=== PATIENT | male | born 1990 | race Caucasian/White ===

== ENCOUNTER 2023-08-11 20:24 | Emergency (ER) | payer OTHER ==
[~2023-08-11] VITALS: Ht 182.9 cm; Wt 90.7 kg
[~2023-08-11 20:24] MED LIST: PAXIL40 MG PO
[2023-08-11] MEDS ORDERED: VENTOLIN HFA18 GM INH (20:35)
[2023-08-11] MEDS ORDERED: OMEPRAZOLE20 MG PO (20:35)
[2023-08-11] MEDS ORDERED: FLUOXETINE HCL20 MG PO (20:35)
[2023-08-11 20:41] LABS: BASOPHILS 0.7 % (0-2); EOSINOPHILS 0.7 % (0-6); HEMATOCRIT 45.6 % (35.0-50.0); HEMOGLOBIN 15.7 g/dL (12.0-18.0); LYMPHOCYTES 24.1 % (24-44); MCHC 34.5 g/dl (30-36); MCV 81.1 fl (81-99); MONOCYTES 7.8 % (0-12); NEUTROPHILS 66.7 % (39-80); PLATELET COUNT 337 K/uL (140-440); RBC 5.62 M/ul (4.3-5.7); RDW 13.3 (10.5-15.0)
[2023-08-11 20:54] LABS: ALBUMIN 4.6 g/dL (3.4-5.0); ALBUMIN/GLOBULIN RATIO 1.15 (1.1-2.4); ANION GAP 16.2 (7-21); BILIRUBIN, TOTAL 0.4 ng/dL (0.2-1.0); BUN/CREATININE RATIO 12.62 (6.0-28.6); CALCIUM 9.5 mg/dL (8.5-10.1); CREATININE, SERUM 1.03 mg/dL (0.70-1.30); POTASSIUM 3.2 mmol/L (3.5-5.1); PROTEIN, TOTAL 8.6 g/dL (6.4-8.2)
[2023-08-11 21:27] LABS: BILIRUBIN, URINE NEGATIVE (negative); BLOOD/HGB, URINE NEGATIVE (Negative); KETONE, URINE SMALL (Negative); LEUK ESTERASE, URINE NEGATIVE (negative); NITRITE, URINE NEGATIVE (negative); PH, URINE 8.5 (5-7)
[2023-08-11 23:25] VITALS: BP 125/83
== END 2023-08-11 23:25 | disposition home or self-care (01) ==
LOC: ED 20:24
PROVIDERS: Emergency Medicine
DX: R10.12 Left upper quadrant pain (principal); R10.32 Left lower quadrant pain; K21.9 Gastro-esophageal reflux disease without esophagitis; Z79.899 Other long term (current) drug therapy
CPT/HCPCS: 36415; 76705; 80053; 81003; 83690; 85025

== ENCOUNTER 2025-08-02 22:12 | Emergency (ER) | payer OTHER ==
[~2025-08-02] VITALS: Ht 182.9 cm; Wt 104.0 kg
[~2025-08-02 22:12] MED LIST changes: +FLUOXETINE HCL20 MG PO; +OMEPRAZOLE20 MG PO; +VENTOLIN HFA18 GM INH
[2025-08-02 22:44] LABS: BASOPHILS 0.8 % (0.2-1.2); EOSINOPHILS 1.4 % (0.8-7.0); LYMPHOCYTES 23.4 % (21.8-53.1); MCH 25.7 PG (25.7-32.2); MCHC 32.4 g/dL (32.3-36.5); MCV 79.5 fL (79.0-92.2); MONOCYTES 10.7 % (5.3-12.2); NEUTROPHILS 63.4 % (34.0-67.9); RBC 5.60 M/uL (4.63-6.08)
[2025-08-02 23:05] LABS: ALT (SGPT) 51.0 U/L (14-59); AST (SGOT) 25.0 U/L (15-37); GLOMERULAR FILTRATION RATE,EST 98.0 mL/min (>60); PROTEIN, TOTAL 8.5 g/dL (6.4-8.2); UREA NITROGEN 14.0 mg/dL (7-18)
[2025-08-02 23:21] LABS: BLOOD/HGB, URINE NEGATIVE (Negative); KETONE, URINE TRACE (Negative); LEUK ESTERASE, URINE NEGATIVE (negative); NITRITE, URINE NEGATIVE (negative)
[2025-08-02] MEDS ORDERED: ONDANSETRON ODT8 MG PO (23:33)
[2025-08-02] MEDS ORDERED: PROTONIX40 MG PO (23:33)
[2025-08-02 23:44] VITALS: BP 129/89
[2025-08-02] MEDS ORDERED: ONDANSETRON 4 MG HOME.PACK SL ONE (23:45)
[2025-08-02] MEDS ORDERED: PANTOPRAZOLE SODIUM 40 MG TABEC PO ONE (23:45)
== END 2025-08-02 23:46 | disposition home or self-care (01) ==
LOC: ED 22:12
PROVIDERS: Emergency Medicine
DX: R10.9 Unspecified abdominal pain (principal); J45.909 Unspecified asthma, uncomplicated; K21.9 Gastro-esophageal reflux disease without esophagitis; Z79.899 Other long term (current) drug therapy
CPT/HCPCS: 36415; 80053; 81003; 83690; 85025; 99284; A9270